=== PATIENT | female | born 1975 | race African-American/Black ===

== ENCOUNTER 2017-02-21 16:18 | Emergency (ER) | payer BC, OTHER ==
[2017-02-21] MEDS ORDERED: ASPIRIN 81 MG TABLET, CHEWABLE PO ONE (17:39)
[2017-02-21] MEDS ORDERED: KETOROLAC TROMETHAMINE INJ/PF 30 MG/1 ML SDV IV ONE (17:58)
[2017-02-21 18:09] LABS: ABSOLUTE EOSINOPHILS # (AUTO) 0.2 10^3/uL (0.0-0.6); ABSOLUTE LYMPHOCYTES (AUTO) 2.5 10^3/uL (0.5-4.7); ABSOLUTE MONOCYTES (AUTO) 0.4 10^3/uL (0.1-1.4); ABSOLUTE NEUT (AUTO) 3.7 10^3/uL (1.7-8.2); BASOPHILS % (AUTO) 0.7 % (0-2); EOSINOPHILS % (AUTO) 2.5 % (0-6); HEMATOCRIT 37.9 % (36.0-47.0); HEMOGLOBIN 12.6 g/dL (12.0-15.5); HGB HCT DIFFERENCE -0.1; LYMPHOCYTES % (AUTO) 36.5 % (13-45); MEAN CORPUSCULAR HEMOGLOBIN 27.2 pg (27.0-33.4); MEAN CORPUSCULAR HGB CONC 33.1 g/dL (32.0-36.0); MEAN CORPUSCULAR VOLUME 82 fl (80-97); MONOCYTES % (AUTO) 5.4 % (3-13); RED BLOOD COUNT 4.62 10^6/uL (3.72-5.28); RED CELL DISTRIBUTION WIDTH 14.4 % (11.5-14.0); SEGMENTED NEUTROPHILS % (AUTO) 54.9 % (42-78); WHITE BLOOD COUNT 6.8 10^3/uL (4.0-10.5)
[2017-02-21 18:29] LABS: ALANINE AMINOTRANSFERASE 33 U/L (9-52); ALBUMIN 4.4 g/dL (3.5-5.0); ALKALINE PHOSPHATASE 97 U/L (38-126); ANION GAP 10 (5-19); ASPARTATE AMINO TRANSFERASE 20 U/L (14-36); BILIRUBIN,DIRECT 0.4 mg/dL (0.0-0.4); BILIRUBIN,TOTAL 0.4 mg/dL (0.2-1.3); BLOOD UREA NITROGEN 13 mg/dL (7-20); CARBON DIOXIDE 29 mmol/L (22-30); CHLORIDE 103 mmol/L (98-107); CREATINE KINASE 107 U/L (30-135); CREATININE RESULT 0.78 mg/dL (0.52-1.25); GLUCOSE 89 mg/dL (75-110); POTASSIUM 4.5 mmol/L (3.6-5.0); SODIUM 141.6 mmol/L (137-145); TOTAL PROTEIN 7.4 g/dL (6.3-8.2)
[2017-02-21 18:40] LABS: CREATINE KINASE MB 0.45 ng/mL (<4.55)
[2017-02-21 18:41] LABS: TROPONIN I < 0.012 ng/mL
--- NOTE | 2017-02-21 18:46 | RADIOLOGY REPORT (SQ) ---
EXAM DESCRIPTION: CHEST SINGLE VIEW COMPLETED DATE/TIME: 02/21/2017 6:35 pm REASON FOR STUDY: chest pain COMPARISON: None. EXAM PARAMETERS: NUMBER OF VIEWS: One view. TECHNIQUE: Single frontal radiographic view of the chest acquired. RADIATION DOSE: NA LIMITATIONS: None. FINDINGS: LUNGS AND PLEURA: No opacities, masses or pneumothorax. No pleural effusion. MEDIASTINUM AND HILAR STRUCTURES: No masses. Contour normal. HEART AND VASCULAR STRUCTURES: Heart normal in size. Normal vasculature. BONES: No acute findings. HARDWARE: None in the chest. OTHER: No other significant finding. IMPRESSION: NO ACUTE RADIOGRAPHIC FINDING IN THE CHEST. TECHNICAL DOCUMENTATION: JOB ID: [id number]
--- NOTE | 2017-02-21 18:49 | ER Document Report ---
ED General - General Chief Complaint: Chest Pain Stated Complaint: CHEST PAIN Time Seen by Provider: 02/21/17 17:40 Mode of Arrival: Ambulatory Information source: Patient Notes: 41-year-old female presents with complaints of right chest wall pain that worsens with movement and palpation. Patient denies any fevers or chills denies any left-sided chest pain patient notes when she moves her right arm she can reproduce the pain TRAVEL OUTSIDE OF THE [place] IN LAST 30 DAYS: No - HPI Onset: Just prior to arrival Onset/Duration: Sudden Quality of pain: Sharp Severity: Mild Pain Level: 1 Associated symptoms: Body/muscle aches Exacerbated by: Movement Relieved by: Denies Similar symptoms previously: No Recently seen / treated by doctor: No - Related Data Allergies/Adverse Reactions: No Known Allergies Allergy (Verified 02/21/17 16:35) Past Medical History - Social History Smoking Status: Current Every Day Smoker Cigarette use (# per day): Yes Chew tobacco use (# tins/day): No Smoking Education Provided: No Frequency of alcohol use: None Drug Abuse: None Family History: Reviewed & Not Pertinent - Past Medical History Cardiac Medical History: Reports: Hx Heart Attack - pt states mini heart attack 19 years ago Endocrine Medical History: Denies: Hx Diabetes Mellitus Type 1, Hx Diabetes Mellitus Type 2 Renal/ Medical History: Denies: Hx Peritoneal Dialysis - Immunizations Hx Diphtheria, Pertussis, Tetanus Vaccination: No Review of Systems - Review of Systems Notes: REVIEW OF SYSTEMS: CONSTITUTIONAL : Denies fever, chills, or sweats. Denies recent illness. EENT: Denies eye, ear, throat, or mouth pain or symptoms. Denies nasal or sinus congestion or discharge. Denies throat, tongue, or mouth swelling or difficulty swallowing. CARDIOVASCULAR: Denies chest pain. Denies palpitations or racing or irregular heart beat. Denies ankle edema. RESPIRATORY: Denies cough, cold, or chest congestion. Denies shortness of breath, difficulty breathing, or wheezing. GASTROINTESTINAL: Denies abdominal pain or distention. Denies nausea, vomiting , or diarrhea. Denies blood in vomitus, stools, or per rectum. Denies black, tarry stools. Denies constipation. GENITOURINARY: Denies difficulty urinating, painful urination, burning, frequency, blood in urine, or discharge. FEMALE GENITOURINARY: Denies vaginal bleeding, heavy or abnormal periods, irregular periods. Denies vaginal discharge or odor. MUSCULOSKELETAL: Right chest wall pain SKIN: Denies rash, lesions or sores. HEMATOLOGIC : Denies easy bruising or bleeding. LYMPHATIC: Denies swollen, enlarged glands. NEUROLOGICAL: Denies confusion or altered mental status. Denies passing out or loss of consciousness. Denies dizziness or lightheadedness. Denies headache. Denies weakness or paralysis or loss of use of either side. Denies problems with gait or speech. Denies sensory loss, numbness, or tingling. Denies seizures. PSYCHIATRIC: Denies anxiety or stress. Denies depression, suicidal ideation, or homicidal ideation. ALL OTHER SYSTEMS REVIEWED AND NEGATIVE. PHYSICAL EXAMINATION: GENERAL: Well-appearing, well-nourished and in no acute distress. HEAD: Atraumatic, normocephalic. EYES: Pupils equal round and reactive to light, extraocular movements intact, conjunctiva are normal. ENT: Nares patent, oropharynx clear without exudates. Moist mucous membranes. NECK: Normal range of motion, supple without lymphadenopathy LUNGS: Breath sounds clear to auscultation bilaterally and equal. No wheezes rales or rhonchi. HEART: Regular rate and rhythm without murmurs ABDOMEN: Soft, nontender, nondistended abdomen. No guarding, no rebound. No masses appreciated. Female : deferred Musculoskeletal: Normal range of motion, no pitting or edema. No cyanosis. Right chest wall tenderness anterior between ribs 3 and 4 completely reproducible on palpation and with movement of the right arm NEUROLOGICAL: Cranial nerves grossly intact. Normal speech, normal gait. Normal sensory, motor exams PSYCH: Normal mood, normal affect. SKIN: Warm, Dry, normal turgor, no rashes or lesions noted. Dictation was performed using [employer] voice recognition software Physical Exam - Vital signs Vitals: Temp Pulse Resp BP Pulse Ox 98.3 F 88 18 138/89 H 98 02/21/17 16:35 02/21/17 16:35 02/21/17 16:35 02/21/17 16:35 02/21/17 16:35 Course - Re-evaluation Re-evalutation: 02/21/17 20:21 Lab work noted no significant abnormality chest x-ray was normal. Patient's symptoms are completely reproducible. I will treat the patient with anti- inflammatories and very strict return precautions and follow-up with cardiology After performing a Medical Screening Examination, I estimate there is LOW risk for RUPTURED ESOPHAGUS, PNEUMOTHORAX, PULMONARY EMBOLISM, ACUTE CORONARY SYNDROME, OR THORACIC AORTIC DISSECTION, thus I consider the discharge disposition reasonable. I have reevaluated this patient multiple times and no significant life threatening changes are noted. The patient and I have discussed the diagnosis and risks, and we agree with discharging home with close follow-up. We also discussed returning to the Emergency Department immediately if new or worsening symptoms occur. We have discussed the symptoms which are most concerning (e.g., bloody sputum, worsening pain or shortness of breath) that necessitate immediate return. - Vital Signs Vital signs: Temp Pulse Resp BP Pulse Ox 97.9 F 84 20 126/87 H 99 02/21/17 18:54 02/21/17 18:54 02/21/17 18:54 02/21/17 18:54 02/21/17 18:54 - Laboratory Result Diagrams: 02/21/17 17:51 02/21/17 17:51 Laboratory results interpreted by me: 02/21/17 17:51 RDW 14.4 H - Diagnostic Test Radiology reviewed: Image reviewed, Reports reviewed - EKG Interpretation by Tx EKG shows normal: Sinus rhythm, [place], Intervals, QRS Complexes Discharge - Discharge Clinical Impression: Chest wall pain Condition: Stable Disposition: HOME, SELF-CARE Instructions: Chest Wall Pain ([facility]) Additional Instructions: Follow up with your physician tomorrow for further care or return to the ED IMMEDIATELY if symptoms worsen or new concerns occur. If you cannot afford to follow up with your primary care physician a list of low cost clinics have been provided at the end of your discharge papers as well. Prescriptions: Naproxen 500 mg PO BID #20 tablet Referrals: UNRULY MARIE MD [ACTIVE STAFF] - Follow up tomorrow
[2017-02-21 18:58] VITALS: BP 126/87
--- NOTE | 2017-02-21 21:03 | EKG REPORT ---
SEVERITY:- OTHERWISE NORMAL ECG - SINUS TACHYCARDIA : Confirmed by: Moraima Castorena MD 21-Feb-2017 21:02:58
== END 2017-02-21 18:58 | disposition home or self-care (01) ==
LOC: ER 16:18
DX: R07.89 Other chest pain (principal); M79.1 Myalgia; F17.210 Nicotine dependence, cigarettes, uncomplicated; I25.2 Old myocardial infarction
CPT/HCPCS: 36415; 71010; 80053; 82550; 82553; 84484; 85025; 93005; 93010; 99285

== ENCOUNTER 2017-05-01 17:10 | Emergency (ER) | payer BC, OTHER ==
[2017-05-01 18:04] LABS: ABSOLUTE EOSINOPHILS # (AUTO) 0.1 10^3/uL (0.0-0.6); ABSOLUTE MONOCYTES (AUTO) 0.4 10^3/uL (0.1-1.4); ABSOLUTE NEUT (AUTO) 5.9 10^3/uL (1.7-8.2); BASOPHILS % (AUTO) 0.3 % (0-2); EOSINOPHILS % (AUTO) 1.2 % (0-6); HEMOGLOBIN 11.3 g/dL (12.0-15.5); HGB HCT DIFFERENCE -0.1; MEAN CORPUSCULAR HEMOGLOBIN 27.4 pg (27.0-33.4); MEAN CORPUSCULAR HGB CONC 33.2 g/dL (32.0-36.0); MEAN CORPUSCULAR VOLUME 83 fl (80-97); MONOCYTES % (AUTO) 4.9 % (3-13); RED BLOOD COUNT 4.12 10^6/uL (3.72-5.28); SEGMENTED NEUTROPHILS % (AUTO) 69.6 % (42-78); WHITE BLOOD COUNT 8.4 10^3/uL (4.0-10.5)
[2017-05-01 18:25] LABS: ALANINE AMINOTRANSFERASE 24 U/L (9-52); ALBUMIN 3.9 g/dL (3.5-5.0); ALKALINE PHOSPHATASE 80 U/L (38-126); ANION GAP 13 (5-19); ASPARTATE AMINO TRANSFERASE 15 U/L (14-36); BILIRUBIN,DIRECT 0.3 mg/dL (0.0-0.4); BILIRUBIN,TOTAL 0.3 mg/dL (0.2-1.3); BLOOD UREA NITROGEN 11 mg/dL (7-20); CALCIUM 9.6 mg/dL (8.4-10.2); CARBON DIOXIDE 21 mmol/L (22-30); CHLORIDE 104 mmol/L (98-107); CREATININE RESULT 0.75 mg/dL (0.52-1.25); GLUCOSE 93 mg/dL (75-110); POTASSIUM 3.9 mmol/L (3.6-5.0); TOTAL PROTEIN 6.7 g/dL (6.3-8.2)
[2017-05-01] MEDS ORDERED: MORPHINE SULFATE 10 MG/ML INJ IV ONE (18:49)
[2017-05-01] MEDS ORDERED: NORMAL SALINE 1000 ML 1,000 ML IV ONE (19:04)
--- NOTE | 2017-05-01 19:04 | ER Document Report ---
ED General - General Chief Complaint: OB Problem (<20wks) Stated Complaint: VAGINAL BLEEDING Time Seen by Provider: 05/01/17 18:01 Mode of Arrival: Ambulatory Information source: Patient, Relative - spouse TRAVEL OUTSIDE OF THE [place] IN LAST 30 DAYS: No - HPI Patient complains to provider of: Onset: Just prior to arrival Onset/Duration: Sudden Quality of pain: Cramping Severity: Moderate Exacerbated by: Denies Relieved by: Denies Similar symptoms previously: No Recently seen / treated by doctor: No Notes: There is a 41 year old who is 12 weeks with twins. Menstrual period was 02/05/2017 estimated date of confinement is 11/12/2017. She states she had an ultrasound approximately 2 weeks ago she sees women's M as well as women's health. He states today without warning she had vaginal bleeding and 2 bloody entities fell out of her vagina. Patient is 8 para 6 her first child was a miscarriage in 1998 at 5 weeks. Her youngest child is 22 months old. Patient states that she has had normal spontaneous vaginal deliveries the only complication was with her fourth child she had bleeding after delivery that was difficult to stop. He has no medical problems she takes vitamins she does have seasonal allergies. - Related Data Allergies/Adverse Reactions: No Known Allergies Allergy (Verified 02/21/17 16:35) Home Medications: Current Home Medications Vit/Iron Fum/Folic AC [ Tablet] 1 each PO DAILY 05/01/17 [ History] Past Medical History - General Information source: Patient, Parent Last Menstrual Period: 02/05/17 - Social History Smoking Status: Never Smoker Chew tobacco use (# tins/day): No Frequency of alcohol use: None Drug Abuse: None Family History: Reviewed & Not Pertinent Patient has suicidal ideation: No Patient has homicidal ideation: No Endocrine Medical History: Reports: None. Denies: Hx Diabetes Mellitus Type 1, Hx Diabetes Mellitus Type 2 Renal/ Medical History: Reports: None. Denies: Hx Peritoneal Dialysis Malignancy Medical History: Reports: None GI Medical History: Reports: None Musculoskeltal Medical History: Reports None Psychiatric Medical History: Reports: None Traumatic Medical History: Reports: None Surgical Hx: Negative - Immunizations Hx Diphtheria, Pertussis, Tetanus Vaccination: No Review of Systems - Review of Systems Constitutional: No symptoms reported EENT: No symptoms reported Cardiovascular: No symptoms reported Respiratory: No symptoms reported Gastrointestinal: No symptoms reported Female Genitourinary: Vaginal bleeding Musculoskeletal: No symptoms reported Skin: No symptoms reported Hematologic/Lymphatic: No symptoms reported Neurological/Psychological: No symptoms reported Physical Exam - Vital signs Vitals: Temp Pulse Resp BP Pulse Ox 98.9 F 120 H 20 127/78 H 100 05/01/17 17:33 12 17:33 12 17:33 05/01/17 17:33 05/01/17 17:33 - Notes Notes: PHYSICAL EXAMINATION: GENERAL: Well-appearing, well-nourished and in no acute distress. Teary-eyed HEAD: Atraumatic, normocephalic. EYES: Pupils equal round and reactive to light, extraocular movements intact, conjunctiva are normal. ENT: Nares patent, oropharynx clear without exudates. Moist mucous membranes. NECK: Normal range of motion, supple without lymphadenopathy LUNGS: Breath sounds clear to auscultation bilaterally and equal. No wheezes rales or rhonchi. HEART: Regular rate and rhythm without murmurs ABDOMEN: Soft. No guarding, no rebound. No masses appreciated. Female : mild bleeding. no clots passed in ED. Musculoskeletal: Normal range of motion, no pitting or edema. No cyanosis. NEUROLOGICAL: Cranial nerves grossly intact. Normal speech, normal gait. Normal sensory, motor exams PSYCH: Normal mood, normal affect. SKIN: Warm, Dry, normal turgor, no rashes or lesions noted. Course - Re-evaluation Re-evalutation: 05/01/17 19:03 Patient did bring in the tissue that came from her vagina. Upon exam it appears to be 2, 2 inch sacs. The tissue was sent to pathology for further evaluation. The patient as well as her were informed. 05/01/17 20:57 Ultrasound showed twin intrauterine 11 week 9 day positive heartbeats at 157. Patient and her were informed. I did tell them to call their OB tomorrow morning for follow-up as well as [facility] for follow-up. I did speak to the nurse practitioner Barbara COTO and and who is on- call. I told her that I put pt. on no heavy lifting and pelvic rest precautions. - Vital Signs Vital signs: Temp Pulse Resp BP Pulse Ox 98.9 F 88 18 105/65 98 05/01/17 17:33 05/01/17 20:32 05/01/17 20:32 05/01/17 20:32 05/01/17 20:32 - Laboratory Result Diagrams: 05/01/17 17:42 05/01/17 17:20 Laboratory results interpreted by me: 05/01/17 05/01/17 17:20 17:42 Hgb 11.3 L Hct 34.0 L Carbon Dioxide 21 L Discharge - Discharge Clinical Impression: Threatened in first trimester Condition: Stable Disposition: HOME, SELF-CARE Referrals: ASUNCION PIKE CRNP [Primary Care Provider] - Follow up as needed JANET PARKER MD [ACTIVE STAFF] - Follow up tomorrow
--- NOTE | 2017-05-01 20:14 | RADIOLOGY REPORT (SQ) ---
EXAM DESCRIPTION: U/S OB TRANSVAGINAL W/O DOP COMPLETED DATE/TIME: 05/01/2017 7:54 pm REASON FOR STUDY: Possible miscarriage COMPARISON: None. TECHNIQUE: Transvaginal static and realtime grayscale images acquired of the pelvis. Additional bella cted spectral and color Doppler images recorded. All images stored on PACs. bHCG: Not available. LIMITATIONS: None. FINDINGS: FETUS: Living intrauterine twin . EGA: 11 weeks 6 days AALIYAH: 11/14/2017 FHR: 157 beats per minute for each twin. SUBCHORIONIC BLEED: No SIZE OF BLEED: Not applicable. UTERUS: No masses. No anomalies. CERVICAL LENGTH: 4.1 cm Closed. RIGHT ADNEXA: Ovary not identified. No adnexal free fluid. No adnexal masses. LEFT ADNEXA: Ovary not identified. No adnexal free fluid. No adnexal masses. FREE FLUID: None. OTHER: No other significant finding. IMPRESSION: LIVING INTRAUTERINE TWIN . EGA 11 weeks 6 days Trimester of : First - 0 to 13 weeks. TECHNICAL DOCUMENTATION: JOB ID: [id number] [place]-72 2010 [employer]- All Rights Reserved
[2017-05-01 21:26] VITALS: BP 123/68
== END 2017-05-01 21:24 | disposition home or self-care (01) ==
LOC: ER 17:10
DX: O20.0 Threatened abortion (principal); O30.091 Twin pregnancy, unable to determine number of placenta and number of amniotic sacs, first trimester; Z3A.11 11 weeks gestation of pregnancy
CPT/HCPCS: 99284; 96374; 86900; 86901; 36415; 85025; 80053; 88305 ×2; 76817; J2270

== ENCOUNTER 2017-09-14 21:41 | Outpatient (CLI) | payer BC, OTHER ==
[2017-09-14 22:55] LABS: APPEARANCE,URINE CLEAR; BILIRUBIN,URINE NEGATIVE (NEGATIVE); COLOR,URINE YELLOW; GLUCOSE, URINE NEGATIVE (NEGATIVE); KETONES,URINE NEGATIVE (NEGATIVE); LEUKOCYTE ESTERASE,URINE SMALL (NEGATIVE); NITRITE,URINE NEGATIVE (NEGATIVE); PROTEIN,URINE NEGATIVE (NEGATIVE); URINE SPECIFIC GRAVITY 1.005; UROBILINOGEN,URINE NEGATIVE mg/dL (<2.0)
[2017-09-14 23:01] LABS: URINE AMPHETAMINES SCREEN NEGATIVE; URINE BARBITURATES SCREEN NEGATIVE; URINE BENZODIAZEPINES SCREEN NEGATIVE; URINE COCAINE SCREEN NEGATIVE; URINE MARIJUANA (THC) SCREEN NEGATIVE; URINE METHADONE SCREEN NEGATIVE; URINE PHENCYCLIDINE SCREEN NEGATIVE
--- NOTE | 2017-09-14 23:35 | RADIOLOGY REPORT (SQ) ---
EXAM DESCRIPTION: U/S OB LIMITED COMPLETED DATE/TIME: 09/14/2017 11:25 pm REASON FOR STUDY: Twins, Cervical length, presentation, fluid COMPARISON: None. TECHNIQUE: Limited transabdominal grayscale ultrasound for evaluation of specific requested obstetri alina parameters. LIMITATIONS: None. FINDINGS: CERVICAL LENGTH: 2.9 cm Closed. Twin A LVP: 4.0 cm. FHR: 139 beats per minute. PRESENTATION: Cephalic. Twin B LVP: 5.7 cm. FHR: 153 beats per minute. PRESENTATION: Breech OTHER: No other significant findings. IMPRESSION: LIMITED OBSTETRICAL ULTRASOUND WITH MEASURED PARAMETERS DELINEATED ABOVE. Trimester of : Third trimester - 28 weeks to delivery. TECHNICAL DOCUMENTATION: JOB ID: [id number] [place]-72 2010 [employer]- All Rights Reserved Reading location - IP/workstation name: [email or web address]
== END 2017-09-15 00:11 | disposition home or self-care (01) ==
LOC: LC 21:41
PROVIDERS: ATTEND Student in an Organized Health Care Education/Training Program
PROC: 4A1HXCZ Monitoring of Products of Conception, Cardiac Rate, External Approach (ICD-10-PCS; principal; 2017-09-14)
DX: O47.03 False labor before 37 completed weeks of gestation, third trimester (principal); Z3A.31 31 weeks gestation of pregnancy
CPT/HCPCS: 76815; 80307; 81001; 87086

== ENCOUNTER 2017-09-30 11:17 | Outpatient (CLI) | payer BC, OTHER | END 2017-09-30 12:20 | disposition home or self-care (01) | LOC: LC 11:17 | PROVIDERS: ATTEND Student in an Organized Health Care Education/Training Program | PROC: 4A1HXCZ Monitoring of Products of Conception, Cardiac Rate, External Approach (ICD-10-PCS; principal; 2017-09-30) | DX: O30.003 Twin pregnancy, unspecified number of placenta and unspecified number of amniotic sacs, third trimester (principal); O09.523 Supervision of elderly multigravida, third trimester; Z3A.33 33 weeks gestation of pregnancy ==

== ENCOUNTER 2017-10-07 09:46 | Outpatient (CLI) | payer BC, OTHER ==
--- NOTE | 2017-10-07 09:49 | Non Stress Test Report ---
Non Stress Test Datetime Report Generated by CPN: 10/07/2017 09:49 DEMOGRAPHIC EGA NST: 33.4 INDICATION Indication for Study: Multiple Gestation VITAL SIGNS Temperature - NST: 98.0 Pulse - NST: 100 RESP - NST: 20 NBPSYS NST: 125 NBPDIA NST: 62 MONITORING Monitor Explained: Monitor Explained; Test Explained; Patient Verbalized Understanding Time on Monitor: 09/30/2017 11:46 Time off Monitor: 09/30/2017 12:20 NST Duration: 34 NST INTERVENTIONS NST Interventions: PO Hydration; Reposition Patient Physician Notified NST: H Dmitriy CNM BABY A: [id number] BABY A Movement : Present Contraction Frequency : denies FHR Baseline : 140 Accelerations : 15X15 Decelerations : None Variability : Moderate 6-25bpm NST Review: Meets Criteria for Reactive NST NST Review and Verified By : RYANNE Ha Results: Reactive BABY B Movement: Present FHR Baseline: 135 Accelerations: 15X15 Decelerations: None Variability: Moderate 6-25bpm NST Review: Meets Criteria for Reactive NST NST Reviewed And Verified By: RYANNE Ha Results: Reactive NST REPORT Report Trigger: Send Report
[2017-10-07 10:47] LABS: AMORPHOUS SEDIMENT,URINE TRACE /HPF; APPEARANCE,URINE CLEAR; BILIRUBIN,URINE NEGATIVE (NEGATIVE); COLOR,URINE YELLOW; GLUCOSE, URINE NEGATIVE (NEGATIVE); KETONES,URINE NEGATIVE (NEGATIVE); LEUKOCYTE ESTERASE,URINE TRACE (NEGATIVE); NITRITE,URINE NEGATIVE (NEGATIVE); PROTEIN,URINE NEGATIVE (NEGATIVE); URINE SPECIFIC GRAVITY 1.004; UROBILINOGEN,URINE NEGATIVE mg/dL (<2.0)
[2017-10-07 11:11] LABS: URINE AMPHETAMINES SCREEN NEGATIVE; URINE BARBITURATES SCREEN NEGATIVE; URINE BENZODIAZEPINES SCREEN NEGATIVE; URINE COCAINE SCREEN NEGATIVE; URINE MARIJUANA (THC) SCREEN NEGATIVE; URINE METHADONE SCREEN NEGATIVE; URINE PHENCYCLIDINE SCREEN NEGATIVE
[2017-10-07 11:15] LABS: UR PRO/CREAT RATIO RESULT 0.7 mg/mg (0.0-0.2); URINE CREATININE 35.1 mg/dL (15-278); URINE PROTEIN 23.7 mg/dL (<12)
[2017-10-07 11:27] LABS: ABSOLUTE EOSINOPHILS # (AUTO) 0.1 10^3/uL (0.0-0.6); ABSOLUTE LYMPHOCYTES (AUTO) 1.7 10^3/uL (0.5-4.7); ABSOLUTE MONOCYTES (AUTO) 0.6 10^3/uL (0.1-1.4); ABSOLUTE NEUT (AUTO) 5.8 10^3/uL (1.7-8.2); BASOPHILS % (AUTO) 0.1 % (0-2); EOSINOPHILS % (AUTO) 1.4 % (0-6); HEMATOCRIT 28.5 % (36.0-47.0); HEMOGLOBIN 9.6 g/dL (12.0-15.5); LYMPHOCYTES % (AUTO) 20.8 % (13-45); MEAN CORPUSCULAR HEMOGLOBIN 25.4 pg (27.0-33.4); MEAN CORPUSCULAR HGB CONC 33.6 g/dL (32.0-36.0); MEAN CORPUSCULAR VOLUME 76 fl (80-97); MONOCYTES % (AUTO) 7.5 % (3-13); PLATELET COUNT 222 10^3/uL (150-450); RED BLOOD COUNT 3.77 10^6/uL (3.72-5.28); RED CELL DISTRIBUTION WIDTH 16.3 % (11.5-14.0); SEGMENTED NEUTROPHILS % (AUTO) 70.2 % (42-78); TOTAL CELLS COUNTED % (AUTO) 100 %; WHITE BLOOD COUNT 8.2 10^3/uL (4.0-10.5)
[2017-10-07 11:43] LABS: ALANINE AMINOTRANSFERASE 29 U/L (9-52); ALBUMIN 3.4 g/dL (3.5-5.0); ALKALINE PHOSPHATASE 79 U/L (38-126); ANION GAP 10 (5-19); ASPARTATE AMINO TRANSFERASE 21 U/L (14-36); BILIRUBIN,DIRECT 0.2 mg/dL (0.0-0.4); BILIRUBIN,TOTAL 0.2 mg/dL (0.2-1.3); BLOOD UREA NITROGEN 6 mg/dL (7-20); CALCIUM 10.6 mg/dL (8.4-10.2); CARBON DIOXIDE 25 mmol/L (22-30); CHLORIDE 104 mmol/L (98-107); GLUCOSE 85 mg/dL (75-110); LDH 349 U/L (313-618); POTASSIUM 3.3 mmol/L (3.6-5.0); SODIUM 139.3 mmol/L (137-145); TOTAL PROTEIN 6.3 g/dL (6.3-8.2); URIC ACID 5.8 mg/dL (2.5-7.0)
--- NOTE | 2017-10-17 07:46 | Non Stress Test Report ---
Non Stress Test Datetime Report Generated by CPN: 10/17/2017 07:45 DEMOGRAPHIC EGA NST: 34.4 INDICATION Indication for Study: Multiple Gestation VITAL SIGNS Temperature - NST: 98.6 Pulse - NST: 88 RESP - NST: 18 NBPSYS NST: 137 NBPDIA NST: 75 MONITORING Monitor Explained: Monitor Explained; Test Explained; Patient Verbalized Understanding Time on Monitor: 10/07/2017 10:01 Time off Monitor: 10/07/2017 12:48 NST Duration: 167 NST INTERVENTIONS NST Interventions: PO Hydration Physician Notified NST: A Emmel CNM BABY A: [id number] BABY A Movement : Present Contraction Frequency : occasional FHR Baseline : 135 Accelerations : 15X15 Decelerations : None Variability : Moderate 6-25bpm NST Review: Meets Criteria for Reactive NST NST Review and Verified By : Lindsay Wilson [facility] NST Results: Reactive BABY B Movement: Present FHR Baseline: 135 Accelerations: 15X15 Decelerations: None Variability: Moderate 6-25bpm NST Review: Meets Criteria for Reactive NST NST Reviewed And Verified By: Lindsay wilson [facility] Results: Reactive NST REPORT Report Trigger: Send Report
== END 2017-10-07 13:19 | disposition home or self-care (01) ==
LOC: LC 09:46
PROVIDERS: ATTEND Obstetrics & Gynecology
PROC: 4A1HXCZ Monitoring of Products of Conception, Cardiac Rate, External Approach (ICD-10-PCS; principal; 2017-10-07)
DX: O30.8 Other specified multiple gestation (principal); Z3A.37 37 weeks gestation of pregnancy
CPT/HCPCS: 36415; 59025; 80053; 80307; 81001; 82570; 83615; 84156; 84550; 85025

== ENCOUNTER 2017-10-17 05:03 | Inpatient (IN) | payer BC, OTHER ==
[2017-10-14 12:57] LABS: APPEARANCE,URINE SLIGHTLY-CLOUDY; BILIRUBIN,URINE NEGATIVE (NEGATIVE); COLOR,URINE YELLOW; GLUCOSE, URINE NEGATIVE (NEGATIVE); KETONES,URINE 80 mg/dL (NEGATIVE); LEUKOCYTE ESTERASE,URINE TRACE (NEGATIVE); NITRITE,URINE NEGATIVE (NEGATIVE); PROTEIN,URINE NEGATIVE (NEGATIVE); URINE SPECIFIC GRAVITY 1.013; UROBILINOGEN,URINE NEGATIVE mg/dL (<2.0)
[2017-10-14 13:03] LABS: ABSOLUTE EOSINOPHILS # (AUTO) 0.1 10^3/uL (0.0-0.6); ABSOLUTE LYMPHOCYTES (AUTO) 1.8 10^3/uL (0.5-4.7); ABSOLUTE MONOCYTES (AUTO) 0.4 10^3/uL (0.1-1.4); ABSOLUTE NEUT (AUTO) 4.6 10^3/uL (1.7-8.2); BASOPHILS % (AUTO) 0.2 % (0-2); EOSINOPHILS % (AUTO) 1.6 % (0-6); HEMATOCRIT 28.6 % (36.0-47.0); HEMOGLOBIN 9.5 g/dL (12.0-15.5); LYMPHOCYTES % (AUTO) 26.3 % (13-45); MEAN CORPUSCULAR HEMOGLOBIN 25.1 pg (27.0-33.4); MEAN CORPUSCULAR HGB CONC 33.3 g/dL (32.0-36.0); MEAN CORPUSCULAR VOLUME 75 fl (80-97); MONOCYTES % (AUTO) 6.3 % (3-13); PLATELET COUNT 220 10^3/uL (150-450); RED BLOOD COUNT 3.79 10^6/uL (3.72-5.28); RED CELL DISTRIBUTION WIDTH 16.2 % (11.5-14.0); SEGMENTED NEUTROPHILS % (AUTO) 65.6 % (42-78); TOTAL CELLS COUNTED % (AUTO) 100 %
[2017-10-14 13:41] LABS: URINE AMPHETAMINES SCREEN NEGATIVE; URINE BARBITURATES SCREEN NEGATIVE; URINE BENZODIAZEPINES SCREEN NEGATIVE; URINE COCAINE SCREEN NEGATIVE; URINE MARIJUANA (THC) SCREEN NEGATIVE; URINE METHADONE SCREEN NEGATIVE; URINE PHENCYCLIDINE SCREEN NEGATIVE
[~2017-10-17 05:03] MED LIST: CEFAZOLIN SODIUM 2 GM in DEXTROSE 5%-WATER 100 ML IV PRN; LACTATED RINGERS 1000 ML IV PRN; LIDOCAINE 0.5% INJ-PF (5 MG/ML) 50 ML SDV SUBCUT PRN; RINGERS SOLUTION,LACTATED 1,000 ML IV PRN
[2017-10-17] MEDS ORDERED: KETOROLAC TROMETHAMINE INJ/PF 30 MG/1 ML SDV ONE (07:33)
[2017-10-17] MEDS ORDERED: OXYTOCIN 10 UNIT/ML VIAL ONE (07:33)
[2017-10-17] MEDS ORDERED: FENTANYL CITRATE INJ/PF 100 MCG/2 ML AMPUL ONE ×2 (07:33→09:51)
[2017-10-17] MEDS ORDERED: TETRACAINE HCL/PF 20MG/2ML AMPULE (SPINAL) ONE (07:34)
[2017-10-17] MEDS ORDERED: ACETAMINOPHEN 100 ML IV ONE (07:34)
[2017-10-17] MEDS ORDERED: MIDAZOLAM 2 MG/2 ML INJ ONE (07:34)
[2017-10-17] MEDS ORDERED: ONDANSETRON HCL INJ/PF 4 MG/2 ML SDV ONE (07:34)
[2017-10-17] MEDS ORDERED: EPHEDRINE SULFATE INJ 50 MG/1 ML AMPULE ONE (07:34)
[2017-10-17] MEDS ORDERED: MORPHINE SULFATE 10 MG/ML INJ IV PRN ×2 (08:31→11:23)
[2017-10-17] MEDS ORDERED: OXYCODONE-ACETAMINOPHEN 5-325 MG TABLET PO PRN ×3 (08:31→11:23)
[2017-10-17] MEDS ORDERED: DIPHENHYDRAMINE HCL 50 MG/ML VIAL IV PRN (08:31)
[2017-10-17] MEDS ORDERED: MEPERIDINE HCL/PF INJ 25 MG/1 ML DISP.SYRIN IV PRN (08:31)
[2017-10-17] MEDS ORDERED: PROMETHAZINE HCL INJ 25 MG/1 ML VIAL IV PRN ×3 (08:31→11:23)
[2017-10-17] MEDS ORDERED: FENTANYL CITRATE INJ/PF 100 MCG/2 ML AMPUL IV PRN ×3 (08:31)
--- NOTE | 2017-10-17 09:50 | OPERATIVE REPORT E ---
Operative Report NAME: ABIGAIL ALEXANDER : 1975 AGE: 42Y DATE OF SURGERY: 10/17/2017 ROOM: 227 PREOPERATIVE DIAGNOSES: 1. IUP at 36 weeks and 1 day, mono-di twins. 2. Undesired fertility. POSTOPERATIVE DIAGNOSES: 1. IUP at 36 weeks and 1 day, mono-di twins. 2. Undesired fertility. PROCEDURE: Low-transverse hysterotomy section with Mantador tubal ligation. SURGEON: BRIAN MCDOWELL M.D. ANESTHESIA: Dr. Sheppard with a spinal. FINDINGS: Baby A is a female in cephalic presentation with Apgars of 8 and 9, weight 5 pounds 4 ounces. Baby B is a female in breech presentation with Apgars of 8 and 9 and weight 5 pounds 15 ounces. COMPLICATIONS: None. ESTIMATED BLOOD LOSS: 1100 mL. SPECIMENS REMOVED: Bilateral fallopian tubes. PROCEDURE IN DETAIL: Patient was taken to the operating room, prepared, and draped in a normal sterile fashion in a supine position with a leftward tilt. A transverse skin incision was made with a scalpel and carried through to the underlying layer of fascia with the same scalpel. The fascia was incised in the midline, extended laterally with blunt dissection. The rectus muscle was dissected from the fascia sharply with [place] and the rectus muscle was divided. Peritoneal cavity was entered bluntly with good visualization of the uterus and the bladder. The bladder blade was inserted and the hysterotomy was nicked with a scalpel and extended laterally with surgeon finger fraction. Infant A was delivered atraumatically, the nose and mouth were suctioned with a suction bulb, the cord was clamped and cut, and the was handed off to awaiting pediatricians. Cord blood was collected and the umbilical cord was marked with a Jessica. Baby B's feet were then grasped and the baby was delivered using the normal maneuvers in a breech presentation. The nose and mouth were suctioned with the suction bulb, the cord was clamped and cut, and the infant handed off to awaiting pediatricians. This cord blood was collected, and this umbilical cord was then marked with an umbilical clamp. The placenta was then removed manually. The uterus was exteriorized and cleared of clots and debris. The hysterotomy was closed with 0 Monocryl in a running, locked fashion. A second layer of the same suture was used to imbricate to ensure hemostasis. Attention was then turned to the fallopian tubes where the right fallopian tube was grasped with a Nunn and the mesosalpinx was divided using the Bovie. The intermediate section of approximately 3 cm of fallopian tube was tied off with 2 pieces of 2-0 chromic and this was removed using Metzenbaums. The pedicles were then coagulated for hemostasis. This procedure was repeated on the left fallopian tube without difficulty. The uterus was then returned to the abdomen. The peritoneal cavity was cleared of clots and debris. A piece of INTERCEED was placed on the hysterotomy for further tamponade and hemostasis as well as scar adhesion prevention. The rectus muscle and peritoneum were then reapproximated with a mattress stitch of 2-0 chromic. The fascia was closed with 0 Vicryl, the subcutaneous layer was closed with plain catgut, and the skin was closed with 4-0 Vicryl. The patient tolerated the procedure well. Sponge, lap, and needle counts were correct x2. The patient was taken to recovery in stable condition. DICTATING PHYSICIAN: BRIAN MCDOWELL M.D. [id number] PHY#: [id number] ID: [id number] JOB#: [id number] ACCT: [id number] cc:BRIAN MCDOWELL M.D. >
[2017-10-17] MEDS ORDERED: OXYTOCIN/NORMAL SALINE 20 UNIT/1,000 ML RTUINJ ONE (10:47)
[2017-10-17] MEDS ORDERED: OXYTOCIN/NORMAL SALINE 20 UNIT/1,000 ML RTUINJ IV PRN (11:23)
[2017-10-17] MEDS ORDERED: MEASLES,MUMPS&RUBELLA VACC/PF 0.5 ML VIAL SUBCUT PRN (11:23)
[2017-10-17] MEDS ORDERED: ACETAMINOPHEN 100 ML IV PRN (11:23)
[2017-10-17] MEDS ORDERED: SIMETHICONE 80 MG TAB.CHEW PO PRN (11:23)
[2017-10-17] MEDS ORDERED: ACETAMINOPHEN 325 MG TABLET PO PRN (11:23)
[2017-10-17] MEDS ORDERED: PHENYLEPHRINE HCL INJ/PF 10 MG/1 ML SDV ONE (11:23)
[2017-10-17] MEDS ORDERED: DIPH/PERTUSS(ACELL)/TETANUS VAC/PF 0.5 ML SYR (>=10YO) IM PRN (11:23)
[2017-10-17] MEDS ORDERED: ALBUTEROL SULFATE HFA (90 MCG/PUFF) 8 GM MDI (1 MDI/ER DISP) IH PRN (11:25)
[2017-10-17] MEDS ORDERED: MORPHINE SULFATE 10 MG/ML INJ ONE (11:35)
[2017-10-17] MEDS: IBUPROFEN 800 MG TABLET PO SCH ×3 (11:56→23:53)
[2017-10-17] MEDS: KETOROLAC TROMETHAMINE INJ/PF 30 MG/1 ML SDV IV SCH ×2 (13:17→23:45)
[2017-10-17] MEDS: OXYCODONE-ACETAMINOPHEN 5-325 MG TABLET PO PRN ×2 (13:17→18:33)
[2017-10-17] MEDS: DOCUSATE SODIUM 100 MG CAPSULE PO SCH (18:30)
[2017-10-18] MEDS: IBUPROFEN 800 MG TABLET PO SCH ×4 (05:59→23:45)
[2017-10-18] MEDS: KETOROLAC TROMETHAMINE INJ/PF 30 MG/1 ML SDV IV SCH (06:07)
[2017-10-18 07:06] LABS: HEMATOCRIT 23.7 % (36.0-47.0); MEAN CORPUSCULAR HEMOGLOBIN 25.2 pg (27.0-33.4); MEAN CORPUSCULAR HGB CONC 33.5 g/dL (32.0-36.0); MEAN CORPUSCULAR VOLUME 75 fl (80-97); PLATELET COUNT 193 10^3/uL (150-450); RED BLOOD COUNT 3.15 10^6/uL (3.72-5.28); RED CELL DISTRIBUTION WIDTH 16.1 % (11.5-14.0); WHITE BLOOD COUNT 8.4 10^3/uL (4.0-10.5)
[2017-10-18 07:15] LABS: HEMOGLOBIN 7.9 g/dL (12.0-15.5)
[2017-10-18] MEDS: OXYCODONE-ACETAMINOPHEN 5-325 MG TABLET PO PRN ×3 (08:37→19:55)
--- NOTE | 2017-10-18 10:25 | PDOC PROGRESS REPORT ---
Subjective-OB Progress Note for:: 10/18/17 Subjective: tolerating diet, passing gas, has been up out of bed. pt notified of low H&H- denies DON/SOB/heart palpitations/dizziness, will recheck CBC in AM Physical Exam (OB) Vital Signs: Temp Pulse Resp BP Pulse Ox 98.4 F 83 16 142/78 H 96 10/18/17 08:06 10/18/17 08:06 10/18/17 08:06 10/18/17 08:06 10/18/17 08:06 Intake & Output 10/17/17 10/18/17 10/19/17 06:59 06:59 06:59 Intake Total 2766 Output Total 560 Balance 2206 - Dressing Removed: No Incision: Dressing, Well Approximated Closure Type: Honeycomb - Abdomen Description: Tender, Soft Hernia Present: No Fundal Description: Firm, Midline Fundal Height: 1/u - 2/u - Extremities Lower extremities: Abelino's sign - neg Calf: Normal, Nontender Objective-Diagnostic Laboratory: 10/18/17 06:32 10/18/17 06:32 WBC 8.4 RBC 3.15 L Hgb 7.9 L Hct 23.7 L MCV 75 L MCH 25.2 L MCHC 33.5 RDW 16.1 H Plt Count 193 Assessment and Plan(PN) - Assessment and Plan (1) delivery delivered Is this a current diagnosis for this admission?: Yes (2) AMA (advanced maternal age) multigravida 35+ Is this a current diagnosis for this admission?: Yes (3) Obesity complicating , childbirth, or puerperium, antepartum Is this a current diagnosis for this admission?: Yes - Time Spent with Patient Time with patient: Less than 15 minutes - Disposition Anticipated Discharge: Home Within: within 24 hours
[2017-10-18] MEDS: DOCUSATE SODIUM 100 MG CAPSULE PO SCH ×2 (10:45→17:27)
[2017-10-18] MEDS: PRENATAL VITAMIN W DHA CAPSULE PO SCH (10:46)
[2017-10-19] MEDS: OXYCODONE-ACETAMINOPHEN 5-325 MG TABLET PO PRN ×3 (01:57→11:51)
[2017-10-19] MEDS: IBUPROFEN 800 MG TABLET PO SCH ×2 (05:21→11:54)
[2017-10-19] MEDS ORDERED: HYDROXYZINE PAMOATE 50 MG CAPSULE PO ONE (06:23)
[2017-10-19 07:16] LABS: ABSOLUTE EOSINOPHILS # (AUTO) 0.2 10^3/uL (0.0-0.6); ABSOLUTE LYMPHOCYTES (AUTO) 2.1 10^3/uL (0.5-4.7); ABSOLUTE MONOCYTES (AUTO) 0.4 10^3/uL (0.1-1.4); ABSOLUTE NEUT (AUTO) 5.2 10^3/uL (1.7-8.2); BASOPHILS % (AUTO) 0.3 % (0-2); EOSINOPHILS % (AUTO) 2.4 % (0-6); HEMATOCRIT 24.5 % (36.0-47.0); LYMPHOCYTES % (AUTO) 26.5 % (13-45); MEAN CORPUSCULAR HGB CONC 32.8 g/dL (32.0-36.0); MEAN CORPUSCULAR VOLUME 76 fl (80-97); MONOCYTES % (AUTO) 5.2 % (3-13); PLATELET COUNT 205 10^3/uL (150-450); RED BLOOD COUNT 3.22 10^6/uL (3.72-5.28); RED CELL DISTRIBUTION WIDTH 16.4 % (11.5-14.0); SEGMENTED NEUTROPHILS % (AUTO) 65.6 % (42-78); TOTAL CELLS COUNTED % (AUTO) 100 %; WHITE BLOOD COUNT 7.9 10^3/uL (4.0-10.5)
--- NOTE | 2017-10-19 09:49 | PDOC PROGRESS REPORT ---
Subjective-OB Progress Note for:: 10/19/17 Subjective: day #2 s/p p c/s Denies concerns, denies headache, vis dist, epigastric pain, lochia is stable, pain is well controlled, voiding without difficulty. Physical Exam (OB) Vital Signs: Temp Pulse Resp BP Pulse Ox 97.5 F 92 16 151/90 H 100 10/19/17 08:40 10/19/17 08:40 10/19/17 08:40 10/19/17 08:40 10/19/17 08:40 Intake & Output 10/18/17 10/19/17 10/20/17 06:59 06:59 06:59 Intake Total 2766 3500 Output Total 560 Balance 2206 3500 - Dressing Removed: No - op site; drainage outline previously Incision: Dressing Closure Type: Honeycomb - Lochia Lochia Amount: Scant < 10 ml Lochia Color: Rubra/Red - Abdomen Description: Tender, Soft, Round Hernia Present: No Fundal Description: Firm, Midline Fundal Height: u/u - u/2 Objective-Diagnostic Laboratory: 10/19/17 06:20 10/19/17 06:20 WBC 7.9 RBC 3.22 L Hgb 8.0 L Hct 24.5 L MCV 76 L MCH 25.0 L MCHC 32.8 RDW 16.4 H Plt Count 205 Seg Neutrophils % 65.6 Lymphocytes % 26.5 Monocytes % 5.2 Eosinophils % 2.4 Basophils % 0.3 Absolute Neutrophils 5.2 Absolute Lymphocytes 2.1 Absolute Monocytes 0.4 Absolute Eosinophils 0.2 Absolute Basophils 0.0 Assessment and Plan(PN) - Assessment and Plan (1) delivery delivered Is this a current diagnosis for this admission?: Yes Plan: pp care anticipate d/c home tomorrow monitor bp (2) Monochorionic diamniotic twin gestation Is this a current diagnosis for this admission?: Yes Plan: delivered (3) AMA (advanced maternal age) multigravida 35+ Qualifiers: Trimester: third trimester Qualified Code(s): O09.523 - Supervision of elderly multigravida, third trimester Is this a current diagnosis for this admission?: Yes Plan: n/a (5) Obesity complicating , childbirth, or puerperium, antepartum Is this a current diagnosis for this admission?: Yes Plan: n/a (6) Qualifiers: Weeks of gestation: 36 weeks Qualified Code(s): Z3A.36 - 36 weeks gestation of Is this a current diagnosis for this admission?: Yes - Time Spent with Patient Time with patient: Less than 15 minutes Critical Time spent with patient: Less than 15 minutes Medications reviewed and adjusted accordingly: Yes - Disposition Anticipated Discharge: Home Within: within 24 hours
[2017-10-19] MEDS: DOCUSATE SODIUM 100 MG CAPSULE PO SCH (09:54)
[2017-10-19] MEDS: PRENATAL VITAMIN W DHA CAPSULE PO SCH (09:54)
[2017-10-19 12:43] LABS: ALANINE AMINOTRANSFERASE 23 U/L (9-52); ALKALINE PHOSPHATASE 69 U/L (38-126); ANION GAP 9 (5-19); ASPARTATE AMINO TRANSFERASE 18 U/L (14-36); BILIRUBIN,DIRECT 0.1 mg/dL (0.0-0.4); BILIRUBIN,TOTAL 0.1 mg/dL (0.2-1.3); BLOOD UREA NITROGEN 8 mg/dL (7-20); CALCIUM 9.6 mg/dL (8.4-10.2); CARBON DIOXIDE 26 mmol/L (22-30); CHLORIDE 107 mmol/L (98-107); GLUCOSE 83 mg/dL (75-110); LDH 491 U/L (313-618); POTASSIUM 4.1 mmol/L (3.6-5.0); SODIUM 141.6 mmol/L (137-145); TOTAL PROTEIN 5.7 g/dL (6.3-8.2); URIC ACID 5.6 mg/dL (2.5-7.0)
--- NOTE | 2017-10-19 15:54 | PDOC DISCHARGE SUMMARY ---
Final Diagnosis Discharge Date: 10/19/17 - Final Diagnosis (1) delivery delivered Is this a current diagnosis for this admission?: Yes (2) Monochorionic diamniotic twin gestation Is this a current diagnosis for this admission?: Yes (3) AMA (advanced maternal age) multigravida 35+ Is this a current diagnosis for this admission?: Yes (4) Obesity complicating , childbirth, or puerperium, antepartum Is this a current diagnosis for this admission?: Yes (5) Is this a current diagnosis for this admission?: Yes Discharge Data - Discharge Medication Prescriptions: Oxycodone HCl/Acetaminophen [Percocet 5-325 mg Tablet] 2 tab PO Q4HP PRN #30 tablet PRN Reason: Docusate Sodium [Colace 100 mg Capsule] 100 mg PO BID #60 capsule Ibuprofen [Motrin 800 mg Tablet] 800 mg PO Q6 #60 tablet Home Medications: Vit/Iron Fum/Folic AC [ Tablet] 1 each PO DAILY 05/01/17 Calcium Carbonate/Vitamin D3 [Calcium 500 mg Chewable Tablet] 2 tab.chew PO PRN PRN 09/30/17 Albuterol Sulfate [Ventolin Hfa 8 gm Mdi (1 Mdi/ER Disp)] 2 puff IH PRN PRN [place]-3 Fatty Acids/Fish Oil [[place] 3 Fish Oil Softgel] 2 each PO DAILY Docusate Sodium [Colace 100 mg Capsule] 100 mg PO BID #60 capsule 10/19/17 Ibuprofen [Motrin 800 mg Tablet] 800 mg PO Q6 #60 tablet 10/19/17 Oxycodone HCl/Acetaminophen [Percocet 5-325 mg Tablet] 2 tab PO Q4HP PRN #30 tablet 10/19/17 Gestational Age: 36.1 Reason(s) for Admission: Ceasarean Section-Primary, Advanced Maternal Age Procedures: NST Intrapartum Procedure(s): : Low Cervical, Transverse - Data Baby 1 Female at 1 minute: 8 at 5 minutes: 9 Weight: 2.381 kg Home with Mother: Yes Complications: No Baby 2 Female at 1 minute: 8 at 5 minutes: 9 Weight: 2.693 kg Home with Mother: Yes Complications: No - Diagnosis Test Laboratory: Temp Pulse Resp BP Pulse Ox 97.5 F 92 16 151/90 H 100 10/19/17 08:40 10/19/17 08:40 10/19/17 08:40 10/19/17 08:40 10/19/17 08:40 10/14/17 10/14/17 10/18/17 12:05 12:10 06:32 RBC 3.79 3.15 L Hgb 9.5 L 7.9 L Hct 28.6 L 23.7 L Urine Opiates Screen NEGATIVE 10/19/17 06:20 RBC 3.22 L Hgb 8.0 L Hct 24.5 L Urine Opiates Screen - Discharge information/Instructions Discharge Activity: Activity As Tolerated, No Driving, Pelvic Rest, No tub bath Discharge Diet: Regular Disposition: HOME, SELF-CARE Follow up with: [facility] in: 1, Weeks - bp chceck
--- NOTE | 2017-10-19 15:56 | PDOC PROGRESS REPORT ---
Subjective-OB Progress Note for:: 10/19/17 Subjective: headache resolved after blood patch, desires d/c home. Verbalizes warning signs. Physical Exam (OB) Vital Signs: Temp Pulse Resp BP Pulse Ox 97.5 F 92 16 151/90 H 100 10/19/17 08:40 10/19/17 08:40 10/19/17 08:40 10/19/17 08:40 10/19/17 08:40 Intake & Output 10/18/17 10/19/17 10/20/17 06:59 06:59 06:59 Intake Total 2766 3500 Output Total 560 Balance 2206 3500 Baby 1 Female 2.381 kg Baby 2 Female 2.693 kg - PIH/Pre-Eclampsia DTR's: 1 + Clonus: Negative Headache: Absent Epigastric Pain: No Visual Changes: No - Dressing Removed: No - op site; drainage outline previously Incision: Dressing Closure Type: Honeycomb - Lochia Lochia Amount: Scant < 10 ml Lochia Color: Rubra/Red - Abdomen Description: Tender, Soft, Round Hernia Present: No Fundal Description: Firm, Midline Fundal Height: u/u - u/2 Objective-Diagnostic Laboratory: 10/19/17 06:20 10/19/17 12:08 10/19/17 10/19/17 06:20 12:08 WBC 7.9 RBC 3.22 L Hgb 8.0 L Hct 24.5 L MCV 76 L MCH 25.0 L MCHC 32.8 RDW 16.4 H Plt Count 205 Seg Neutrophils % 65.6 Lymphocytes % 26.5 Monocytes % 5.2 Eosinophils % 2.4 Basophils % 0.3 Absolute Neutrophils 5.2 Absolute Lymphocytes 2.1 Absolute Monocytes 0.4 Absolute Eosinophils 0.2 Absolute Basophils 0.0 Sodium 141.6 Potassium 4.1 Chloride 107 Carbon Dioxide 26 Anion Gap 9 BUN 8 Creatinine 0.70 Est GFR ( Amer) > 60 Est GFR (Non-Af Amer) > 60 Glucose 83 Uric Acid 5.6 Calcium 9.6 Total Bilirubin 0.1 L AST 18 ALT 23 Alkaline Phosphatase 69 Total Protein 5.7 L Albumin 3.0 L Assessment and Plan(PN) - Assessment and Plan (1) delivery delivered Is this a current diagnosis for this admission?: Yes Plan: d/c home (2) Monochorionic diamniotic twin gestation Qualifiers: Trimester: third trimester Qualified Code(s): O30.033 - Twin , monochorionic/diamniotic, third trimester Is this a current diagnosis for this admission?: Yes Plan: home (3) AMA (advanced maternal age) multigravida 35+ Qualifiers: Trimester: third trimester Qualified Code(s): O09.523 - Supervision of elderly multigravida, third trimester Is this a current diagnosis for this admission?: Yes (4) Obesity complicating , childbirth, or puerperium, antepartum Is this a current diagnosis for this admission?: Yes (5) Qualifiers: Weeks of gestation: 36 weeks Qualified Code(s): Z3A.36 - 36 weeks gestation of Is this a current diagnosis for this admission?: Yes - Time Spent with Patient Time with patient: Less than 15 minutes Critical Time spent with patient: Less than 15 minutes Medications reviewed and adjusted accordingly: Yes - Disposition Anticipated Discharge: Home Within: within 24 hours
[2017-10-19 16:38] VITALS: BP 121/71
== END 2017-10-19 17:51 | disposition home or self-care (01) | DRG 765 ==
LOC: 2S 05:03
PROVIDERS: ADMIT Obstetrics & Gynecology; ATTEND Obstetrics & Gynecology
PROC: 0UB70ZZ Excision of Bilateral Fallopian Tubes, Open Approach (ICD-10-PCS; 2017-10-17)
PROC: 4A1HXCZ Monitoring of Products of Conception, Cardiac Rate, External Approach (ICD-10-PCS; 2017-10-17)
PROC: 10D00Z1 Extraction of Products of Conception, Low, Open Approach (ICD-10-PCS; principal; 2017-10-17 07:45)
PROC: 3E0234Z Introduction of Serum, Toxoid and Vaccine into Muscle, Percutaneous Approach (ICD-10-PCS; 2017-10-19)
PROC: 3E0R3GC Introduction of Other Therapeutic Substance into Spinal Canal, Percutaneous Approach (ICD-10-PCS; 2017-10-19)
DX: O30.033 Twin pregnancy, monochorionic/diamniotic, third trimester (principal); Z68.41 Body mass index [BMI] 40.0-44.9, adult; O99.214 Obesity complicating childbirth; E66.9 Obesity, unspecified; Z23 Encounter for immunization; Z3A.36 36 weeks gestation of pregnancy; Z37.2 Twins, both liveborn; Z82.49 Family history of ischemic heart disease and other diseases of the circulatory system; Z30.2 Encounter for sterilization
CPT/HCPCS: 1961; 36415; 59025; 62273; 80053; 80307; 81001; 83615; 84550; 85025; 85027; 86850; 86900; 86901; 88302; 90715; 94799; C1765; J0131; J0690; J1885; J2250; J2270; J2370; J2405; J2550; J2590; J3010; J3490; J7120

== ENCOUNTER 2017-10-26 16:02 | Emergency (ER) | payer BC, OTHER ==
--- NOTE | 2017-10-26 16:53 | ER Document Report ---
ED Breast Problem - General Chief Complaint: Breast Problem Stated Complaint: BREAST PAIN Time Seen by Provider: 10/26/17 16:39 Notes: Patient is a 42-year-old female complaining of bilateral breast tenderness times several days. Left breast began hurting more today. Patient developed a low-grade fever and feels sick to her stomach today. Patient is 2 weeks with twins and is breast-feeding. TRAVEL OUTSIDE OF THE [place] IN LAST 30 DAYS: No - HPI Onset: Yesterday Onset/Duration: Gradual, Persistent, Worse Pain Level: 3 Context: Discharge description: Creamy Associated Symptoms: Body/muscle aches, Fever, Nausea Similar symptoms previously: No Recently seen / treated by doctor: Yes - Related Data Allergies/Adverse Reactions: latex Allergy (Verified 10/26/17 16:03) Generalized rash Past Medical History - General Information source: Patient - Social History Smoking Status: Never Smoker Frequency of alcohol use: None Drug Abuse: None Lives with: Family Family History: Reviewed & Not Pertinent - Past Medical History Cardiac Medical History: Reports: Hx Heart Attack - pt states mini heart attack 19 years ago Denies: Hx Pulmonary Embolism Pulmonary Medical History: Reports: Hx Asthma - SEASONAL- PRN ALBUTEROL Denies: Hx Sleep Apnea, Hx Tuberculosis Endocrine Medical History: Denies: Hx Diabetes Mellitus Type 1, Hx Diabetes Mellitus Type 2 Renal/ Medical History: Denies: Hx Peritoneal Dialysis GI Medical History: Reports: Hx Gastroesophageal Reflux Disease. Denies: Hx Hiatal Hernia, Hx Ulcer - Immunizations Hx Diphtheria, Pertussis, Tetanus Vaccination: No Review of Systems - Review of Systems Constitutional: No symptoms reported EENT: No symptoms reported Cardiovascular: No symptoms reported Respiratory: No symptoms reported Gastrointestinal: No symptoms reported Genitourinary: No symptoms reported Female Genitourinary: No symptoms reported Musculoskeletal: No symptoms reported Skin: No symptoms reported Hematologic/Lymphatic: No symptoms reported Neurological/Psychological: No symptoms reported Physical Exam - Vital signs Vitals: Temp Pulse Resp BP Pulse Ox 99.7 F 85 16 166/84 H 98 10/26/17 16:15 10/26/17 16:15 10/26/17 16:15 10/26/17 16:15 10/26/17 16:15 Interpretation: Normal - General General appearance: Appears well, Alert - HEENT Head: Normocephalic, Atraumatic Eyes: Normal Pupils: PERRL - Respiratory Respiratory status: No respiratory distress Chest status: Nontender Breath sounds: Normal Chest palpation: Other - Positive tenderness and warmth at 3:00 on left breast. No abscess palpated. No erythema. - Cardiovascular Rhythm: Regular Heart sounds: Normal auscultation Murmur: No - Abdominal Inspection: Normal Distension: No distension Bowel sounds: Normal Tenderness: Nontender Organomegaly: No organomegaly - Back Back: Normal, Nontender - Extremities General upper extremity: Normal inspection, Nontender, Normal color, Normal ROM , Normal temperature General lower extremity: Normal inspection, Nontender, Normal color, Normal ROM , Normal temperature, Normal weight bearing. No: Abelino's sign - Neurological Neuro grossly intact: Yes Cognition: Normal Orientation: AAOx4 Mesick Coma Scale Eye Opening: Spontaneous Mirian Coma Scale Verbal: Oriented Mesick Coma Scale Motor: Obeys Commands Mirian Coma Scale Total: 15 Speech: Normal Motor strength normal: LUE, RUE, LLE, RLE Sensory: Normal - Psychological Associated symptoms: Normal affect, Normal mood - Skin Skin Temperature: Warm Skin Moisture: Dry Skin Color: Normal Course - Re-evaluation Re-evalutation: 10/26/17 16:50 History and physical are consistent with an early mastitis. Blood pressure is noted to be slightly elevated. Patient is aware and is being treated for her blood pressure by her OB. Was recently started on an antihypertensive. Patient denies headache or chest pain. Will provide a course of oral antibiotics and have patient follow-up with her primary care tomorrow patient is agreeable with plan and stable for discharge - Vital Signs Vital signs: Temp Pulse Resp BP Pulse Ox 99.7 F 85 16 166/84 H 98 10/26/17 16:15 10/26/17 16:15 10/26/17 16:15 10/26/17 16:15 10/26/17 16:15 Discharge - Discharge Clinical Impression: Mastitis Condition: Stable Disposition: HOME, SELF-CARE Instructions: Mastitis ([facility]), Antibiotic Therapy ([facility]), Warm Packs ([facility]) Additional Instructions: You are being treated and infected blocked milk duct, mastitis Please take all oral antibiotic as prescribed May apply warm compresses to breast for comfort Follow-up with your OB tomorrow for further evaluation and treatment Your blood pressure is noted to be elevated today Continue your current blood pressure medication as prescribed Recommend keeping a blood pressure diary and follow-up with your primary care for further evaluation Prescriptions: Cephalexin Monohydrate [Keflex 500 mg Capsule] 500 mg PO QID #28 capsule Forms: Elevated Blood Pressure
[2017-10-26 16:58] VITALS: BP 148/84
== END 2017-10-26 17:00 | disposition home or self-care (01) ==
LOC: ER 16:02
DX: O91.22 Nonpurulent mastitis associated with the puerperium (principal); R50.9 Fever, unspecified; R11.0 Nausea; M79.1 Myalgia; Z91.040 Latex allergy status
CPT/HCPCS: 99283

== ENCOUNTER 2018-05-20 19:07 | Emergency (ER) | payer BC, OTHER ==
[2018-05-20] MEDS ORDERED: ACETAMINOPHEN 325 MG TABLET PO ONE (19:44)
[2018-05-20] MEDS ORDERED: LIDOCAINE 5% (700 MG) TRANSDERMAL ADH..PATCH TP ONE (19:46)
--- NOTE | 2018-05-20 19:52 | ER Document Report ---
ED General - General Chief Complaint: Low Back Pain Stated Complaint: BACK PAIN Time Seen by Provider: 05/20/18 19:33 Information source: Patient Notes: Patient is a 42-year-old female who presents to the emergency department with a chief complaint of low back pain. Low back pain started a few days ago and she was seen by urgent care and was given prednisone, cyclobenzaprine, and naproxen. She states she has been taken these medications, and has had relief, but today she was shopping and when she got home to out presence, she bent down down and felt a "pop" sensation when that happened. She also felt numbness right after the pop, but now has normal sensation. She has history of an epidural with a blood patch to the area in October of this year. She also states that she has back pain because of having children. She denies any loss of bladder or bowel function, unable to walk, or history of IV drug abuse. TRAVEL OUTSIDE OF THE [place] IN LAST 30 DAYS: No - Related Data Allergies/Adverse Reactions: latex Allergy (Verified 05/20/18 19:11) Generalized rash Past Medical History - General Information source: Patient - Social History Smoking Status: Never Smoker Frequency of alcohol use: None Drug Abuse: None Family History: Reviewed & Not Pertinent - Past Medical History Cardiac Medical History: Reports: Hx Heart Attack - pt states mini heart attack 19 years ago Denies: Hx Pulmonary Embolism Pulmonary Medical History: Reports: Hx Asthma - SEASONAL- PRN ALBUTEROL Denies: Hx Sleep Apnea, Hx Tuberculosis Endocrine Medical History: Denies: Hx Diabetes Mellitus Type 1, Hx Diabetes Mellitus Type 2 Renal/ Medical History: Denies: Hx Peritoneal Dialysis GI Medical History: Reports: Hx Gastroesophageal Reflux Disease. Denies: Hx Hiatal Hernia, Hx Ulcer - Immunizations Hx Diphtheria, Pertussis, Tetanus Vaccination: No Review of Systems - Review of Systems Notes: REVIEW OF SYSTEMS: CONSTITUTIONAL : Denies recent illness. Denies recent unintentional weight loss. Denies fever, chills, or sweats. EENT: Denies eye, ear, throat, or mouth pain, discharge, or symptoms. Denies nasal or sinus congestion. CARDIOVASCULAR: Denies chest pain. RESPIRATORY: Denies shortness of breath, cough, congestion, difficulty breathing, or wheezing. GASTROINTESTINAL: Denies nausea, vomiting, and diarrhea. Denies abdominal pain. Denies constipation. GENITOURINARY: Denies difficulty urinating, burning, blood in urine, urgency or frequency. MUSCULOSKELETAL: See HPI SKIN: Denies rash, itchiness, or lesions HEMATOLOGIC : Denies easy bruising or bleeding. LYMPHATIC: Denies swollen, painful, enlarged glands. NEUROLOGICAL: Denies no numbness or tingling denies weakness. Denies headache. Denies altered mental status. Denies alteration in speech. PSYCHIATRIC: Denies stress, anxiety, alteration in sleep patterns, or depression. All other systems reviewed and negative. Physical Exam - Vital signs Vitals: Temp Pulse Resp BP Pulse Ox 98.4 F 64 17 154/82 H 100 05/20/18 19:27 05/20/18 19:27 05/20/18 19:27 05/20/18 19:27 05/20/18 19:27 - Notes Notes: PHYSICAL EXAMINATION: GENERAL: Appears well, healthy, well-nourished, no acute distress. HEAD: Normocephalic, atraumatic. EYES: PERRL, conjunctiva normal, all extraocular movements intact, sclera nonicteric ENT: Moist mucous membranes. NECK: Supple, no noticeable swelling, redness, rash. Normal range of motion. LUNGS: Equal breath sounds bilaterally and clear to auscultation. No wheezes rales or rhonchi. CARDIOVASCULAR: S1-S2, regular rate, regular rhythm. Radial pulses 2+, normal. ABDOMEN: Normoactive bowel sounds. Soft, nontender, no guarding, no rebound tenderness, and no masses palpated. EXTREMITIES: Normal strength and decreased range of motion due to patient's pain, patient's range of motion improved after pain medication. No pitting or edema. No cyanosis. NEUROLOGICAL: Moves all extremities upon command. Strength 5/5 in all extremities. PSYCH: Normal mood, normal affect. SKIN: Warm, dry. No rash, lesions, ulcerations noted. Normal skin turgor. MUSCULOSKELETAL: Pain noted upon palpation of lower back. Course - Re-evaluation Re-evalutation: 05/20/18 21:[address] Rosario in regards to this case. Since the patient has no neurological deficits, paresthesias, and she does have rectal tone, able to walk, he suggests that she get a stronger dose of pain medication, follow-up with her primary care provider, and continue with her outpatient MRI. 05/20/18 21:49 I have reassessed the patient after she received her IM Dilaudid. She states she does feel better and is able to sit up a little straighter. She also had better range of motion with her torso. She will be sent home on oral morphine for a short period of time. I have advised her that she needs to only take her oral morphine as needed. Verbal discharge instructions were given to the patient. They verbalized understanding. They are stable for discharge. - Vital Signs Vital signs: Temp Pulse Resp BP Pulse Ox 98.3 F 67 18 150/75 H 100 05/20/18 22:07 05/20/18 22:07 05/20/18 22:07 05/20/18 22:07 05/20/18 22:07 Discharge - Discharge Clinical Impression: Low back pain Qualifiers: Chronicity: chronic Back pain laterality: bilateral Sciatica presence: with sciatica Sciatica laterality: sciatica of left side Qualified Code(s): M54.42 - Lumbago with sciatica, left side Condition: Stable Disposition: HOME, SELF-CARE Additional Instructions: You have been seen today for back pain. Your pain appears to be due to sciatic nerve pain. You may take medications you are currently prescribed from the urgent care as needed for the pain. Also, you have been prescribed lidocaine patches. Place 1 patch on for 12 hours, then keep the patch off for 12 hours. After 12 hours of the patch being off, you can apply another one patch if needed. You may use [id number] Aspercreme with lidocaine 3 times a day to help with the pain. You have also been given morphine, narcotic pain medication for your symptoms. Please take only as needed. If you feel your pain is getting worse, develop weakness, increased muscle aches, or other symptoms that are worrisome to you, please return to the emergency department follow-up with your primary care provider, or return to the emergency department. Prescriptions: Morphine Sulfate [Morphine Ir 15 Mg Tablet] 15 mg PO BID PRN #8 tablet PRN Reason: pain Referrals: ASUNCION PIKE CRNP [Primary Care Provider] - Follow up as needed
[2018-05-20] MEDS ORDERED: HYDROMORPHONE HCL INJ/PF 2 MG/ML AMPULE IM ONE (21:03)
[2018-05-20 22:08] VITALS: BP 150/75
== END 2018-05-20 22:02 | disposition home or self-care (01) ==
LOC: ER 19:07
DX: M54.42 Lumbago with sciatica, left side (principal); Z91.040 Latex allergy status; I25.2 Old myocardial infarction
CPT/HCPCS: 99283; 96372; J1170

== ENCOUNTER 2019-06-02 12:20 | Emergency (ER) | payer BC, OTHER ==
[2019-06-02] MEDS ORDERED: DEXAMETHASONE SOD PHOS INJ 10 MG/1 ML VIAL IM ONE (13:06)
[2019-06-02] MEDS ORDERED: LIDOCAINE 5% (700 MG) TRANSDERMAL ADH..PATCH TP ONE (13:06)
[2019-06-02] MEDS ORDERED: KETOROLAC TROMETHAMINE 60 MG/2 ML SDV IM ONE (13:06)
--- NOTE | 2019-06-02 13:10 | ER Document Report ---
HPI - HPI Time Seen by Provider: 06/02/19 12:57 Pain Level: 5 Notes: Patient is a 43-year-old female with history of intermittent low back pain who presents to the ED complaining of Rt lower back pain times 1 day when she was doing an activity with her kids. Patient states that bending twisting of the trunk make his pain worse. Pain does not radiate aside from occ pain to the rt groin. She is eating and drinking without any difficulties. She is urinating normally and having normal bowel movements. She has not had any injections or procedures to his lower back. Denies any IV drug abuse. No other concerns or complaints. Denies any headache, fever, head injury, neck pain, changes in vision/speech/mentation/hearing, URI, sore throat, chest pain, palpitations, syncope, cough, shortness of breath, wheeze, dyspnea, abdominal pain, nausea/vomiting/diarrhea, urinary retention, dysuria, hematuria, loss of control of bowel or bladder, numbness/tingling, saddle anesthesia, muscle paralysis/weakness, or rash. - ROS Systems Reviewed and Negative: Yes All other systems reviewed and negative - REPRODUCTIVE Reproductive: DENIES: : Past Medical History - Social History Smoking Status: Never Smoker Chew tobacco use (# tins/day): No Frequency of alcohol use: None Drug Abuse: None Family History: Reviewed & Not Pertinent Patient has suicidal ideation: No Patient has homicidal ideation: No - Past Medical History Cardiac Medical History: Reports: Hx Heart Attack - pt states mini heart attack 19 years ago Denies: Hx Pulmonary Embolism Pulmonary Medical History: Reports: Hx Asthma - SEASONAL- PRN ALBUTEROL Denies: Hx Sleep Apnea, Hx Tuberculosis Endocrine Medical History: Denies: Hx Diabetes Mellitus Type 1, Hx Diabetes Mellitus Type 2 Renal/ Medical History: Denies: Hx Peritoneal Dialysis GI Medical History: Reports: Hx Gastroesophageal Reflux Disease. Denies: Hx Hiatal Hernia, Hx Ulcer Past Surgical History: Reports: Hx Section - Immunizations Hx Diphtheria, Pertussis, Tetanus Vaccination: No Vertical Provider Document - CONSTITUTIONAL Agree With Documented VS: Yes Notes: PHYSICAL EXAMINATION: GENERAL: Well-appearing, well-nourished and in no acute distress. LUNGS: Breath sounds clear to auscultation bilaterally and equal. No wheezes rales or rhonchi. HEART: Regular rate and rhythm without murmurs, rubs, gallops. ABDOMEN: Soft, nontender, nondistended abdomen. No guarding, no rebound. Normal bowel sounds present. No CVA tenderness bilaterally. Musculoskeletal: LE's b/l: FROM to passive/active. Strength 5+/5. No deficits noted. No bony tenderness of extremities. Back: FROM to passive/active. Strength 5+/5. No vertebral point tenderness, stepoffs, or deformities. No other bony tenderness, erythema, swelling, or ecchymosis. SLR negative b/l. + mild reproducible tenderness to the Rt L- paraspinal mm. Mild spasming. No SI jt tenderness. No foot drop Extremities: No cyanosis, clubbing, or edema b/l. Peripheral pulses 2+. Capillary refill less than 2 seconds. NEUROLOGICAL: Normal speech, favors left side gait. Normal sensory, motor exams. Reflexes 2+ b/l. PSYCH: Normal mood, normal affect. SKIN: Warm, Dry, normal turgor, no rashes or lesions noted. - INFECTION CONTROL TRAVEL OUTSIDE OF THE [place] IN LAST 30 DAYS: No Course - Re-evaluation Re-evalutation: 06/02/19 13:08 Patient is an afebrile, well-hydrated, 43-year-old female who presents to the ED with acute Rt low back pain, suspect strain vs sprain. Vitals are acceptable. PE is otherwise unremarkable for any focal neurological deficits. Patient was given Toradol, decadron, and Lidoderm patch. She has no significant tachycardia, tachypnea, or hypoxia. She is nontoxic-appearing and is tolerating p.o. without difficulties. There are no signs of infection. No other red flag symptoms noted. No other labs or imaging warranted at this time based on H&P. Low suspicion for any meningitis, fracture, expanding/ruptured AAA, cauda equina syndrome, epidural mass lesion/abscess, herniated disc causing severe spinal stenosis, or other systemic infection at this time. Patient is aware that this condition can change from initial presentation and that she needs monitor symptoms closely for any acute changes. I will send her home with a prescription for Robaxin and motrin. Conservative measures otherwise for sy mptoms. Recheck with your PCM in 3-5 days. Consider consult with orthopedic/physical therapy. Return to the ED with any worsening/concerning symptoms otherwise as reviewed discharge. Patient is in agreement. - Vital Signs Vital signs: Temp Pulse Resp BP Pulse Ox 98.5 F 86 16 143/83 H 99 06/02/19 12:24 06/02/19 12:24 06/02/19 12:24 06/02/19 12:24 06/02/19 12:24 Discharge - Discharge Clinical Impression: Right low back pain Qualifiers: Chronicity: acute Sciatica presence: without sciatica Qualified Code(s): M54.5 - Low back pain Condition: Stable Disposition: HOME, SELF-CARE Instructions: Low Back Pain ([facility]), Muscle Relaxers ([facility]) Additional Instructions: Rest, Ice Tylenol/ibuprofen as needed Light stretches daily Strength exercises as able Moist heat and massage may help F/u with your PCP in 3-5 days for a recheck Consider consult(s) with Orthopedics/physical therapy for ongoing/worsening symptoms Return to the ED with any worsening symptoms and/or development of fever, headache, chest pain, palpitations, syncope, shortness of breath, trouble breathing, abdominal pain, n/v/d, blood in stool/urine, loss of control of bowel/bladder, urinary retention, muscle weakness/paralysis, saddle anesthesia, numbness/tingling, or other worsening symptoms that are concerning to you. Prescriptions: Ibuprofen [Motrin 800 mg Tablet] 800 mg PO Q8H PRN #15 tab PRN Reason: Methocarbamol [Robaxin 750 mg Tablet] 750 mg PO TID PRN #10 tablet PRN Reason: Forms: Elevated Blood Pressure Referrals: ASUNCION PIKE CRNP [Primary Care Provider] - Follow up as needed [facility] [Provider Group] - Follow up as needed
[2019-06-02 13:50] VITALS: BP 140/78
== END 2019-06-02 13:43 | disposition home or self-care (01) ==
LOC: ER 12:20
DX: M54.5 Low back pain (principal); I25.2 Old myocardial infarction; J45.909 Unspecified asthma, uncomplicated
CPT/HCPCS: 99283; 96372; J1885; J1100